=== PATIENT | male | born 1950 | race African-American/Black ===

== ENCOUNTER 2018-12-18 09:27 | Observation (INO) | payer MEDICARE ==
[2018-12-18] MEDS ORDERED: NS 0.9% 1000 ML** 1,000 ML IV ONE (09:46)
[2018-12-18] MEDS ORDERED: Insulin REGULAR(*) 1 UNITS UNIT IV ONE (09:46)
[2018-12-18] MEDS ORDERED: Ondansetron INJ* 2 MG/ML VIAL IV ONE (10:16)
[2018-12-18 10:46] LABS: ABS Basophils 0 10^3/ul (0-0.2); ABS Eosinophils 0 10^3/ul (0-0.6); ABS Lymphocytes 1.3 10^3/ul (1.0-4.8); ABS Monocytes 0.7 10^3/ul (0-0.8); ABS Neutrophils 5.3 10^3/ul (1.5-7.7); ABS Nucleated RBC 0 10^3/ul; Eosinophil % 0.4 %; Hematocrit 47 % (42-52); Hemoglobin 14.6 g/dl (14.0-18.0); Lymphocyte % 17.7 %; Mean Corpuscular HGB Conc 31 g/dl (31-36); Mean Corpuscular Hemoglobin 23 pg (27-31); Mean Corpuscular Volume 75 fL (80-94); Mean Platelet Volume 9.5 fL (7.4-10.4); Nucleated Red Blood Cells % 0.1; Platelet Count 163 10^3/ul (150-450); Red Blood Count 6.31 10^6/ul (4.00-5.40); Red Cell Distribution Width 15 % (10.5-15); White Blood Count 7.3 10^3/ul (3.5-10.8)
[2018-12-18 11:05] LABS: Albumin 4.3 g/dL (3.2-5.2); Albumin/Globulin Ratio 1.2 (1-3); BUN/Creatinine Ratio 21.9 (8-20); C Reactive Protein 3.63 mg/L (<8.01); EGFR African American 85.5 (>60); EGFR Non-African American 70.7 (>60); Globulin 3.6 g/dL (2-4); Magnesium 1.9 mg/dL (1.9-2.7); Potassium 4.6 mmol/L (3.5-5.0); Total Bilirubin 0.7 mg/dL (0.2-1.0); Total Protein 7.9 g/dL (6.4-8.9)
[2018-12-18] MEDS ORDERED: Insulin REGULAR(*) 1 UNITS UNIT IV PUSH ONE (11:37)
--- NOTE | 2018-12-18 11:37 | ED ---
HPI Diabetic - HPI Summary HPI Summary: Patient is a 68-year-old male with history of diabetes presenting to the ED for concern for DKA. He states he ran out of his oral medications last week and ran out of insulin 3 days ago. He states since Sunday he has been vomiting. He states he was unable to secure any visits with his PCP due to co-pays. He states he is able to afford the medications but his office visits are too expensive for him. He has not eaten anything today, but had water to drink this morning. He endorses DKA 5 years ago with a subsequent ICU stay. - History Of Current Complaint Chief Complaint: EDDiabeticProb Time Seen by Provider: 12/18/18 09:45 Hx Obtained From: Patient Onset/Duration: Gradual Onset Timing: Constant Severity Initially: Moderate Severity Currently: Moderate Character: Alert Aggravating: Diet Change, Medication Change, Non-compliant Associated Signs & Symptoms: Abdominal Pain, Chills, Nausea, Polydipsia, Polyuria Related History: DM II, Hx of DKA, Insulin Requiring, Oral Hypoglycemics, Other - Noncompliant due to financial reasons - Risk Factors Cardiac Risk Factors: Hypertension Serious Bact. Infect. Risk Factors (Meningitis/Sepsis/UTI): Negative - Allergies/Home Medications Allergies/Adverse Reactions: Allergies Allergy/AdvReac Type Severity Reaction Status Date / Time No Known Allergies Allergy Verified 12/18/18 09:35 Home Medications: Home Medications Lisinopril TAB* [Prinivil TAB 5 MG*] 5 mg PO DAILY 12/18/18 [History Confirmed 12/18/18] Sitagliptin/Metform 50/500(NF) [Janumet 50/500 (NF)] 1 tab PO DAILY 12/18/18 [ History Confirmed 12/18/18] PMH/Surg Hx/FS Hx/Imm Hx Previously Healthy: Yes Endocrine/Hematology History: Reports: Hx Diabetes Cardiovascular History: Reports: Other Cardiovascular Problems/Disorders - Hx OF ATRIAL FLUTER, NO PROBLEMS SINCE Denies: Hx Coronary Artery Disease Respiratory History: Reports: Hx Asthma - Hx OF YOUNG CHILD Musculoskeletal History: Denies: Hx Osteoporosis Sensory History: Reports: Hx Cataracts, Hx Contacts or Glasses, Hx Glaucoma Opthamlomology History: Reports: Hx Cataracts, Hx Contacts or Glasses, Hx Glaucoma - Surgical History Surgery Procedure, Year, and Place: 2 knee srugery, 2 eye surgerys, ACL left knee, Bx LT [facility] (BLOOD VESSEL) Hx Anesthesia Reactions: No - Immunization History Hx Pertussis Vaccination: No Immunizations Up to Date: Yes Infectious Disease History: No Infectious Disease History: Denies: Traveled Outside the [place] in Last 30 Days - Social History Occupation: Unemployed Lives: With Family Alcohol Use: Rare Hx Substance Use: Yes Substance Use Type: Reports: Marijuana Substance Use Comment - Amount & Last Used: OCCASIONALLY Hx Tobacco Use: Yes Smoking Status (MU): Former Smoker Type: Cigarettes Amount Used/How Often: LESS THEN 1PPD 40 YRS Length of Time of Smoking/Using Tobacco: 20 Have You Smoked in the Last Year: Yes Review of Systems Negative: Fever, Chills, Fatigue Negative: Photophobia, Blurred Vision Negative: Dental Pain, Sore Throat Negative: Chest Pain Negative: Shortness Of Breath, Cough Positive: Abdominal Pain, Vomiting, Nausea. Negative: Diarrhea Positive: other - polyuria, polydipsia Negative: Arthralgia, Myalgia Neurological: Negative All Other Systems Reviewed And Are Negative: Yes Physical Exam Triage Information Reviewed: Yes Vital Signs On Initial Exam: Initial Vitals Temp Pulse Resp BP Pulse Ox 97.5 F 109 16 132/67 98 12/18/18 09:32 12/18/18 09:32 12/18/18 09:32 12/18/18 09:32 12/18/18 09:32 Vital Signs Reviewed: Yes Appearance: Positive: Ill-Appearing Head/Face: Positive: Normal Head/Face Inspection Eyes: Positive: EOMI, ANETA, Conjunctiva Clear Neck: Positive: Supple, No Lymphadenopathy Respiratory/Lung Sounds: Positive: Clear to Auscultation, Breath Sounds Present Cardiovascular: Positive: RRR, Pulses are Symmetrical in both Upper and Lower Extremities. Negative: Leg Edema Left, Leg Edema Right Musculoskeletal: Positive: Normal, Strength/ROM Intact Neurological: Positive: Sensory/Motor Intact, Alert, Oriented to Person Place, Time, Speech Normal Psychiatric: Positive: Normal, Affect/Mood Appropriate AVPU Assessment: Alert Diagnostics - Vital Signs Vital Signs Temp Pulse Resp BP Pulse Ox 12/18/18 11:00 86 98 12/18/18 10:15 88 111/77 97 12/18/18 10:14 99 97 12/18/18 09:32 97.5 F 109 16 132/67 98 - Laboratory Lab Results: Lab Results 12/18/18 12/18/18 12/18/18 Range/Units 10:31 10:31 10:31 WBC 7.3 (3.5-10.8) 10^3/ul RBC 6.31 H (4.00-5.40) 10^6/ul Hgb 14.6 (14.0-18.0) g/dl Hct 47 (42-52) % MCV 75 L (80-94) fL MCH 23 L (27-31) pg MCHC 31 (31-36) g/dl RDW 15 (10.5-15) % Plt Count 163 (150-450) 10^3/ul MPV 9.5 (7.4-10.4) fL Neut % (Auto) 72.2 % Lymph % (Auto) 17.7 % Mcmullen % (Auto) 9.3 % Eos % (Auto) 0.4 % Baso % (Auto) 0.4 % Absolute Neuts (auto) 5.3 (1.5-7.7) 10^3/ul Absolute Lymphs (auto) 1.3 (1.0-4.8) 10^3/ul Absolute Monos (auto) 0.7 (0-0.8) 10^3/ul Absolute Eos (auto) 0 (0-0.6) 10^3/ul Absolute Basos (auto) 0 (0-0.2) 10^3/ul Absolute Nucleated RBC 0 10^3/ul Nucleated RBC % 0.1 Sodium 135 (135-145) mmol/L Potassium 4.6 (3.5-5.0) mmol/L Chloride 101 (101-111) mmol/L Carbon Dioxide 19 L (22-32) mmol/L Anion Gap 15 H (2-11) mmol/L BUN 23 (6-24) mg/dL Creatinine 1.05 (0.67-1.17) mg/dL Est GFR ( Amer) 85.5 (>60) Est GFR (Non-Af Amer) 70.7 (>60) BUN/Creatinine Ratio 21.9 H (8-20) Glucose 393 H (70-100) mg/dL Lactic Acid 1.5 (0.5-2.0) mmol/L Calcium 10.0 (8.6-10.3) mg/dL Magnesium 1.9 (1.9-2.7) mg/dL Total Bilirubin 0.70 (0.2-1.0) mg/dL AST 14 (13-39) U/L ALT 20 (7-52) U/L Alkaline Phosphatase 91 (34-104) U/L Total Creatine Kinase 67 (10-223) U/L C-Reactive Protein 3.63 (<8.01) mg/L Total Protein 7.9 (6.4-8.9) g/dL Albumin 4.3 (3.2-5.2) g/dL Globulin 3.6 (2-4) g/dL Albumin/Globulin Ratio 1.2 (1-3) Lipase 13 (11.0-82.0) U/L Result Diagrams: 12/18/18 10:31 12/18/18 10:31 Lab Statement: Any lab studies that have been ordered have been reviewed, and results considered in the medical decision making process. Diabetic Course/Dx - Course Course Of Treatment: During the course treatment, the patients evaluated for potential DKA. His blood glucose at PCP office was 341. He was sent here to the ED for IV hydration and to rule out DKA. Patients glucose on arrival was 393. Patient appears ill with dry mucous membranes. He denies any headache, however endorses nausea, vomiting. He does endorse polydipsia and polyuria over the past 3 days, but states now has been unable to urinate. Last urination was this morning which was dark in color. He denies any back pain. He was given 2 L fluids, 20 potassium and 7 units insulin on arrival. Subsequent glucose fingerstick is obtained at 355. He was then given 10 units insulin. He is also given Zofran for his nausea. He continues to be symptomatic. Initially refuses venous blood gas. Called vascular team to obtain a venous blood class at this time. This is pending. UA obtained which was 3+ glucose, otherwise negative for UTI. Labs obtained which show an anion gap of 15, BUN/creatinine ratio of 21.9 ketones at 2+. His rbcs are 6.31, however on previous visits they have been elevated. Discussed with patient and he would like to be admitted due to his continuing symptoms. He is not placed on a drip at this time due to a possible ICU admission. Discussed case with Dr. Schuler, hospitalist, who agrees to admit for DKA symptoms. - Diagnoses Differential Dx: Diabetic Ketoacidosis, Hyperglycemia, Hyperosmolar State Provider Diagnoses: DKA (diabetic ketoacidoses) - Physician Notifications Discussed Care Of Patient With: David Schuler Instructed by Provider To: Admit As Inpatient Discharge - Sign-Out/Discharge Documenting (check all that apply): Patient Departure - Discharge Plan Condition: Fair Disposition: ADMITTED TO [facility] Referrals: Lele Magana MD [Primary Care Provider] - - Billing Disposition and Condition Condition: FAIR Disposition: Admitted to [facility]
[2018-12-18] MEDS ORDERED: glipiZIDE TAB* 5 MG PO ONE (11:38)
[2018-12-18] MEDS ORDERED: KCL 20 MEQ/100 ML IVPREMIX* 20 MEQ/100 ML BAG IV ONE (11:44)
[2018-12-18 11:53] LABS: Urine Appearance Clear; Urine Bilirubin Negative (Negative); Urine Blood Negative (Negative); Urine Color Yellow; Urine Glucose 3+(>=500 mg/dL) (Negative); Urine Ketones 2+ (Negative); Urine Nitrite Negative (Negative); Urine Protein Negative (Negative); Urine Urobilinogen Negative (Negative)
[2018-12-18] MEDS ORDERED: NS 0.9% w/ 20 Meq KCL 1000 ML* 1,000 ML IV SCH (13:00)
[2018-12-18] MEDS ORDERED: Insulin IVPB 100 units/100 ml 100 UNITS/100 ML UNIT IVPB SCH (13:00)
[2018-12-18] MEDS ORDERED: Magnesium Sulfate 1 GM IV* 1 GM/100 ML BAG IV ONE (13:11)
--- NOTE | 2018-12-18 14:46 | HP ---
HISTORY AND PHYSICAL: DATE OF ADMISSION: 12/18/18 ADMITTING PROVIDER: David Schuler MD PRIMARY CARE PHYSICIAN: Dr. Uma Rosas. CHIEF COMPLAINT: Nausea, reduced appetite. HISTORY OF PRESENT ILLNESS: Beto Butterfield is a 68-year-old male with past medical history of insulin-dependent diabetes mellitus, glaucoma, GERD, giant cell arteritis, osteoporosis, hypertension, transient A. flutter (during a prior episode of DKA). He is under financial constraints and does not feel like he could pay the 20% co-pay to see his doctors. He therefore ran out of all of his diabetic medications, his oral medications 10 days ago including the Janumet and the glipizide. He then ran out of his Tresiba and Humalog three days ago - last dose was 12/15/18, He started to develop nausea that Sunday night. He has been very fatigued, had a dry mouth, has not eaten anything since Sunday. He was seen by Dr. Uma Rosas for the first time this morning and referred to the emergency room for further evaluation with suspected DKA. Here he did have an elevated anion gap of 15, glucose of 393, 2+ ketones on his urinalysis. A VBG has since been obtained and shows a pH of 7.28. His bicarb is 19, lactic acid is 1.5. He had 7U of regular insulin and still glucose levels were 355 and was referred to hospitalist service for admission. He has subsequently got another 10 units of regular. He has orders to start on an insulin drip in the ICU. He denies any fevers, chills, abdominal pain, or other complaint. He says that his sugars have usually been running, when he is healthy, from 80s to low 100s, but more recently 200s and was 376 this a.m. He attests that he does have a soft spot for sweets and sodas. PAST MEDICAL HISTORY: Insulin-dependent diabetes mellitus; glaucoma; GERD; giant cell arteritis, no longer on steroids; osteoporosis; transient episode of A. flutter; hypertension. MEDICATIONS: Include: 1. Glipizide 10 mg twice a day. 2. Tresiba 40 units at night. 3. Lisinopril 5 mg. 4. Atorvastatin 20 mg q.h.s. 5. Janumet 50/500 twice a day. 6. Alendronate 35 mg weekly. 7. Humalog sliding scale, 100 to 200 is 3 units, 200 to 250 is 5 units, 251 to 300 is 7 units, 301 to 350 is 9 units, 351 to 400 is 11 units, and greater than 400 is 15 units. 8. Travatan Z 0.004% one drop in the right eye at night. 9. Timoptic-XE 0.5% one drop in the right eye q. day. 10. Brimonidine tartrate 0.15% one drop right eye b.i.d. ALLERGIES: No known drug allergies. FAMILY HISTORY: His father of bone cancer at age 65. Mother of diabetes and end-stage renal disease at age 62. He has 2 sisters and 2 brothers , who are healthy. SOCIAL HISTORY: The patient is a former smoker, quit approximately 1 year ago, 20 years of half a pack per day. He rarely drinks alcohol, about 1 beer a month. No drug use. 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 His medical surrogates are his friend, Neli Sanderson, and his daughter, Maritza Butterfield. He desires to be a full code. REVIEW OF SYSTEMS: A complete 14-point review of systems negative except as per HPI. PHYSICAL EXAMINATION GENERAL APPEARANCE: No acute distress. VITAL SIGNS: Temperature 97.5, pulse rate 109 initially, satting 98% on room air, respiratory rate 16, blood pressure 132/67. HEENT: Normocephalic, atraumatic. Pupils are equal, round, and reactive to light. Extraocular motions intact. No scleral icterus. LUNGS: Clear to auscultation bilaterally with no wheezing, rales, or rhonchi. CARDIOVASCULAR: Regular rate and rhythm. No murmurs, rubs, or gallops. ABDOMEN: Soft, nontender, nondistended.No rebound or guarding. No Doe's sign. EXTREMITIES: Warm and well perfused. No peripheral edema. NEUROLOGIC: Cranial nerves II through XII intact. Moving all extremities. SKIN: No lesions. No rashes. DIAGNOSTIC STUDIES/LAB DATA: White count 7.3, hemoglobin 14.6, hematocrit 47, MCV 75, platelets 163. VBG: pH 7.28, pCO2 44, pO2 31, bicarb 18.9. Sodium 135 , potassium 4.6, chloride 101, carbon dioxide 19, anion gap 15, BUN 23, creatinine 1.05. Glucose 393, on fingersticks initially 418 and then 355. Lactic acid 1.5, calcium 10.0, magnesium 1.9. Total bili 0.7, AST 14, ALT 20, alk phos 91. CRP 3.6. Albumin 4.3. Lipase 13. Urinalysis: 2+ ketones, 3+ glucose. Imaging: No imaging. EKG demonstrated poor R-wave progression. No ST elevations or depressions. Normal axis. Heart rate 90. QTc 447. ASSESSMENT AND PLAN: Beto Butterfield is a 68-year-old male with past medical history of insulin-dependent diabetes mellitus, hypertension, giant cell arteritis, osteoporosis, who has run out of his oral diabetic medications for the last 10 days and his Tresiba 40 units and sliding scale insulin for the last 3 days, presenting with nausea, fatigue, sensation of dehydration. He has labs consistent with some mild diabetic ketoacidosis with an anion gap of 15, slightly acidotic, but not markedly so. I suspect he will only need a short time in the ICU on insulin drip before transitioning back to long-acting insulin. He is status post a total of 17 units of regular already (first 7U then another 10U). He has he received 1 L bolus of normal saline so far. I am going to give him 500 cc normal saline an hour with 20 mEq potassium for next 4 hours and then transition to D5 normal saline at 150 cc an hour once his blood glucose falls below 250. I am going to repeat BMPs every 4 hours and once gap closed, start long-acting insulin. I will continue his lisinopril and atorvastatin. Keep a close eye on his magnesium and potassium. He is a full code. Medical surrogates are his friend, Neli Sanderson, and his daughter, Maritza Butterfield. [id number]/[facility] #: [id number] M[facility] IMOGENE BASSETT HOSPITALBecky
[2018-12-18 15:12] LABS: BUN/Creatinine Ratio 21.3 (8-20); Blood Urea Nitrogen 19 mg/dL (6-24); CO2 Carbon Dioxide 18 mmol/L (22-32); Calcium 8.7 mg/dL (8.6-10.3); Chloride 109 mmol/L (101-111); EGFR African American 103.5 (>60); EGFR Non-African American 85.5 (>60); Glucose 249 mg/dL (70-100); Magnesium 1.8 mg/dL (1.9-2.7); Sodium 136 mmol/L (135-145)
[2018-12-18 15:14] LABS: Anion Gap 9 mmol/L (2-11)
[2018-12-18] MEDS ORDERED: Insulin GLARGINE(*) 1 UNITS UNIT SUBCUT ONE (16:00)
[2018-12-18] MEDS ORDERED: Magnesium Sulfate 2 GM IV* 2 GM/50 ML BAG IVPB ONE (16:07)
[2018-12-18] MEDS ORDERED: Dextrose 50% Syringe 50 ML* 25 GM/50 ML SYRINGE IV PUSH PRN (16:10)
[2018-12-18] MEDS: NS 0.9% 1000 ML** 1,000 ML IV SCH ×2 (17:15→22:11)
[2018-12-18] MEDS: Insulin LISPRO* 1 UNITS UNIT SUBCUT SCH ×2 (17:46→21:14)
[2018-12-18] MEDS: Latanoprost 0.005%* 2.5 ml BTL BOTH EYES SCH (21:15)
[2018-12-18] MEDS: Brimonidine P 0.15%(NF) OPH SOL 5 ML BTL BOTH EYES SCH (21:15)
[2018-12-18 22:30] LABS: BUN/Creatinine Ratio 16.8 (8-20); Calcium 8.8 mg/dL (8.6-10.3); EGFR Non-African American 79.3 (>60); Potassium 4.1 mmol/L (3.5-5.0)
[2018-12-19 06:50] LABS: BUN/Creatinine Ratio 15.9 (8-20); Calcium 8.5 mg/dL (8.6-10.3); EGFR African American 113.7 (>60); Magnesium 2.2 mg/dL (1.9-2.7); Potassium 4.2 mmol/L (3.5-5.0)
[2018-12-19] MEDS: Timolol 0.5% OPTH.SOL* BTL BOTH EYES SCH (08:03)
[2018-12-19] MEDS: Brimonidine P 0.15%(NF) OPH SOL 5 ML BTL BOTH EYES SCH ×2 (08:03→20:51)
[2018-12-19] MEDS: glipiZIDE TAB* 5 MG PO SCH ×2 (08:05→20:50)
[2018-12-19] MEDS: Lisinopril TAB* 5 MG PO SCH (08:05)
[2018-12-19] MEDS: Insulin GLARGINE(*) 1 UNITS UNIT SUBCUT SCH ×2 (08:05→20:50)
[2018-12-19] MEDS: Insulin LISPRO* 1 UNITS UNIT SUBCUT SCH ×4 (08:06→20:50)
--- NOTE | 2018-12-19 19:37 | PN ---
Subjective Date of Service: 12/19/18 Interval History: Denies symptoms. Reports he is unable to afford his insurance payments and therefore cannot get medications. Someone to bring in his insurance cards today. Objective Active Medications: Brimonidine Tartrate (Alphagan P 0.15%(Nf)) 1 drop BOTH EYES BID [facility] Last Admin: 12/19/18 08:03 Dose: Not Given Dextrose (D50w Syringe 50 Ml*) 12.5 gm IV PUSH .FOR FS < 60 - SS PRN PRN Reason: FS < 60 Glipizide (Glucotrol Tab*) 10 mg PO BID [facility] Last Admin: 12/19/18 08:05 Dose: 10 mg Insulin Glargine (Lantus(*)) 20 units SUBCUT Q12H [facility]AH Last Admin: 12/19/18 08:05 Dose: 20 units Insulin Human Lispro (Humalog*) 0 units SUBCUT ACHS [facility]; Protocol Last Admin: 12/19/18 16:37 Dose: 9 units Latanoprost (Xalatan 0.005%*) 1 drop BOTH EYES BEDTIME [facility]; Protocol Last Admin: 12/18/18 21:15 Dose: Not Given Lisinopril (Prinivil Tab*) 5 mg PO DAILY [facility] Last Admin: 12/19/18 08:05 Dose: 5 mg Timolol Maleate (Timoptic 0.5% Opth*) 1 drop BOTH EYES QAM [facility] Last Admin: 12/19/18 08:03 Dose: Not Given Vital Signs - 8 hr 12/19/18 12/19/18 12:09 15:38 Temperature 97.9 F 97.5 F Pulse Rate 78 85 Respiratory 16 12 Rate Blood Pressure 122/81 120/65 (mmHg) O2 Sat by Pulse 100 99 Oximetry Oxygen Devices in Use Now: None Appearance: well appearing, speaking in full sentences Ears/Nose/Mouth/Throat: Mucous Membranes Moist Neck: No Thyroid Enlargement, Masses Respiratory: Clear to Auscultation Cardiovascular: NL Sounds; No Murmurs; No JVD, RRR Abdominal: NL Sounds; No Tenderness; No Distention Lymphatic: No Cervical Adenopathy Extremities: No Edema Neurological: Alert and Oriented x 3 Result Diagrams: 12/18/18 10:31 12/19/18 06:05 Microbiology and Other Data: Microbiology 12/18/18 14:00 Nasal Screen MRSA (PCR) - Final Nasal Mrsa Not Detected Assess/Plan/Problems-Billing 68M with DM2 on insulin, HTN, giant cell arteritis, osteoporosis, who presented with n/v, fatigue, and hypovolemia, found to be in mild DKA, with resolution and gap closed with only one dose of IV insulin regular 17u. Now pending safest discharge plan, which will involve figuring out a way pt can acquire medications despite financial burden. - Patient Problems (1) Diabetic ketoacidosis Current Visit: Yes Status: Acute Priority: High Onset Date: 12/23/14 Code(s): E13.10 - OTH DIABETES MELLITUS WITH KETOACIDOSIS WITHOUT COMA SNOMED Code(s): 929974666 Comment: resolved (2) Uncontrolled diabetes mellitus Current Visit: Yes Status: Acute Priority: High Onset Date: 12/23/14 Code(s): E11.65 - TYPE 2 DIABETES MELLITUS WITH HYPERGLYCEMIA SNOMED Code(s): 17162241 Comment: cont insulin with sliding scale - would switch sulfonylurea to Janumet on DC (3) DVT prophylaxis Current Visit: Yes Comment: ambulation (4) Full code status Current Visit: Yes Status: Acute Priority: High Onset Date: 12/23/14 Code(s): Z78.9 - OTHER SPECIFIED HEALTH STATUS SNOMED Code(s): 466053891 Status and Disposition: Pending insurance clarification - pt likely would return with same presentation in unable to acquire medications.
[2018-12-19] MEDS: Latanoprost 0.005%* 2.5 ml BTL BOTH EYES SCH (20:51)
[2018-12-20] MEDS: Insulin LISPRO* 1 UNITS UNIT SUBCUT SCH ×2 (08:09→11:47)
[2018-12-20] MEDS: Lisinopril TAB* 5 MG PO SCH (08:15)
[2018-12-20] MEDS: glipiZIDE TAB* 5 MG PO SCH (08:16)
[2018-12-20] MEDS: Insulin GLARGINE(*) 1 UNITS UNIT SUBCUT SCH (08:16)
[2018-12-20] MEDS: Brimonidine P 0.15%(NF) OPH SOL 5 ML BTL BOTH EYES SCH (08:19)
[2018-12-20] MEDS: Timolol 0.5% OPTH.SOL* BTL BOTH EYES SCH (08:20)
[2018-12-20 12:55] VITALS: BP 130/76
--- NOTE | 2018-12-20 23:09 | DS ---
CC: Lele Magana MD DISCHARGE SUMMARY: DATE OF ADMISSION: 12/18/18 DATE OF DISCHARGE: 12/20/18 PRIMARY CARE PHYSICIAN: Lele Magana MD DISPOSITION: Home. CONDITION: Good. PRIMARY DIAGNOSIS: Diabetic ketoacidosis. SECONDARY DIAGNOSIS: Insulin-dependent type 2 diabetes. PERTINENT LABS: on admission pH of 7.28, anion gap 15, urine with ketones, fingerstick glucose initially 418. HISTORY OF PRESENT ILLNESS: A 68-year-old man with insulin-dependent type 2 diabetes, giant cell arteritis, glaucoma, hypertension, ran out of all of his diabetes medications 10 days prior to admission. Three days prior to admission began to develop nausea, fatigue, dry mouth. Seen by Dr. Uma Rosas on the morning of admission and referred to the emergency room for further evaluation. Admitted for treatment of DKA. HOSPITAL COURSE: The patient was given 7 units of regular insulin in the emergency room, admitted, then received an additional 10 units of regular insulin. His anion gap closed and his symptoms resolved before initiation of insulin drip. The patient was without complaint and explained that he was unable to take his medication and attend doctor's visits given high co-pays. On day of discharge, pt denies denies nausea, vomiting, dry mouth. 10-point ROS negative. Physical exam: well appearing, conversant and pleasant, rrr no mgr, ctab, soft nontender, no LE edema. DISCHARGE MEDICATIONS: 1. Insulin degludec 40 units daily. 2. Insulin lispro sliding scale 0 to 15 units t.i.d. by fingersticks. 3. Janumet b.i.d. 4. Lisinopril 5 mg daily. 5. Glipizide 10 mg b.i.d. DISCHARGE PLAN: The patient is to follow up with [facility] in order to afford medical care and stay on diabetes medications. He can resume diabetic low- carbohydrate diet and a regular level of activity. TIME SPENT ON DISCHARGE: Over 30 minutes, over half of which was spent at bedside interviewing and examining the patient. [id number]/[facility] #: [id number] MTDD
== END 2018-12-20 13:20 | disposition home or self-care (01) ==
LOC: ED 09:27 → ICU 12:34 → MEDTELE 19:59
PROVIDERS: ADMIT Internal Medicine; ATTEND Internal Medicine
DX: E11.10 Type 2 diabetes mellitus with ketoacidosis without coma (principal); E11.9 Type 2 diabetes mellitus without complications; Z79.4 Long term (current) use of insulin; H40.9 Unspecified glaucoma; K21.9 Gastro-esophageal reflux disease without esophagitis; M31.6 Other giant cell arteritis; I10 Essential (primary) hypertension; R10.9 Unspecified abdominal pain; R11.0 Nausea; R63.1 Polydipsia; R35.8 Other polyuria; Z87.891 Personal history of nicotine dependence
CPT/HCPCS: 36415; 80048; 80053; 81003; 82550; 82803; 83036; 83605; 83690; 83735; 85025; 86140; 87641; 93005; 96361; 96365; 96372; 96375; 99284; A9270-GY; J1815; J2405; J3475; J3480